=== PATIENT | male | born 1985 | race Caucasian/White ===

== ENCOUNTER 2022-03-04 20:19 | Emergency (ER) | payer SELFPAY ==
[2022-03-04 20:24] VITALS: BP 121/80; PULSE 106; RESP 18; TEMP 37.1; O2SAT 97; BMI 24.3
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
[2022-03-04 21:51] LABS: Basophils Percent Auto 1.4 % (0-2); Eosinophils Percent Auto 1.1 % (0-4); Hematocrit 34.2 % (42.0-52.0); Hemoglobin 11.5 g/dl (14.0-18.0); Lymphocytes Percent Auto 35.4 % (20-40); MANUAL DIFF FLAG NO; Mean Corpuscular HGB Conc 33.6 g/dl (31.0-36.0); Mean Corpuscular Hemoglobin 29.9 pg (27.0-33.0); Mean Corpuscular Volume 88.8 fL (80.0-98.0); Mean Platelet Volume 9.5 fL (9.4-12.4); Monocytes Absolute Auto 0.3 X10*3/uL (0.1-1.2); Monocytes Percent Auto 10.5 % (2-11); Neutrophils Absolute Auto 1.4 x10*3/uL (2.0-8.3); Neutrophils Percent Auto 51.6 % (45-73); Red Blood Count 3.85 X10*6/uL (4.60-5.80); White Blood Count 2.8 X10*3/uL (4.8-10.8)
[2022-03-04 22:02] LABS: Ethanol 481 mg/dL
[2022-03-04 22:16] LABS: Anion Gap 17 (12-20); Blood Urea Nitrogen 3 mg/dL (9-16); Calcium 8.8 mg/dL (8.4-10.2); Carbon Dioxide 25 mmol/L (22-29); Chloride 105 mmol/L (96-108); Creatinine Clr Calc Pharmacy 150.5; Estimated Glomerular Filt Rate > 60; Glucose Random 94 mg/dL (60-115); Potassium 3.6 mmol/L (3.3-5.1); Sodium 143 mmol/L (135-145)
[2022-03-04 22:45] LABS: Platelet Count 92 X10*3/uL (160-400)
[2022-03-04 23:07] LABS: COVID-19 Test Negative (Negative)
[2022-03-05 06:22] VITALS: BP 118/83; PULSE 111; RESP 17; TEMP 37; O2SAT 96
[2022-03-05 06:44] LABS: Amphetamine Screen Urine Not Detected (Not Detect); Barbiturates, Urine Not Detected (Not Detect); Benzodiazepines Screen Urine Not Detected (Not Detect); Cannabinoid Screen Urine POSITIVE (Not Detect); Cocaine Screen Urine Not Detected (Not Detect); Fentanyl, urine Not Detected (Not Detect); Opiate Screen Urine Not Detected (Not Detect); Phencyclidine Screen Urine Not Detected (Not Detect)
--- NOTE | 2022-03-05 06:59 | PC.NURSE ---
Patient slept through the night, no distress observed/reported, asymptomatic of withdrawal, plan is to d/c home when sober, behavior non concerning, will continue to monitor.
--- NOTE | 2022-03-05 07:09 | PC.NURSE ---
patient appears to remain asleep at present respirations are even and unlabored patient appears in no distress
== END 2022-03-05 08:40 | disposition home or self-care (01) ==
LOC: HO.ED 03-05 08:17
PROVIDERS: Emergency Provider Internal Medicine
DX: F10.129 Alcohol abuse with intoxication, unspecified (principal); Y90.8 Blood alcohol level of 240 mg/100 ml or more; Z20.822 Contact with and (suspected) exposure to COVID-19; Z79.899 Other long term (current) drug therapy
CPT/HCPCS: 36415; 80048; 80307; 82077; 85025; 87635; 99284